=== PATIENT | female | born 1955 | race Caucasian/White ===

== ENCOUNTER 2017-01-25 15:20 | Emergency (ER) | payer BC, OTHER ==
[2017-01-25 15:44] VITALS: BP 185/75; PULSE 68; RESP 18; TEMP 98.7
[2017-01-25] MEDS ORDERED: PROPARACAINE 0.5% OPHTH DROPS 15 ML BTL RIGHT EYE STA (16:05)
--- NOTE | 2017-01-25 16:08 | ED ---
Eye Problem HPI <Alexis Bergman - Last Filed: 01/25/17 16:23> - General Source: patient, RN notes reviewed Mode of arrival: ambulatory Limitations: no limitations <Sadaf Weaver - Last Filed: 01/25/17 20:21> - General Chief complaint: Eye Problems Stated complaint: Eye Problem Time Seen by Provider: 01/25/17 15:55 - History of Present Illness Initial comments: Patient is a 61-year-old female presents to the emergency room for evaluation. Patient states about 45 minutes prior to arrival she began seeing a black spot in her right eye. Patient states since then it feels as though the black spot his dispersed. Patient explains it as black ink being dropped into a bowl of water. Patient states she cannot really see out of her right eye. Patient states she's never had symptoms like this before. Patient denies any pain in her eye. Patient denies any redness or irritation in her right eye. Patient denies headache or dizziness. Patient denies recent head trauma. (Sadaf Weaver) - Related Data Home Medications Medication Instructions Recorded Confirmed Aspirin 81 mg PO DAILY 06/12/15 01/25/17 Atenolol 25 mg PO BID 06/12/15 01/25/17 Ezetimibe/Simvastatin [Vytorin 1 tab PO DAILY 06/12/15 01/25/17 10-20 mg Tablet] Insulin Aspart [NovoLOG] 26 unit SQ AC-BRKFST 06/12/15 01/25/17 Insulin Aspart [NovoLOG] 30 unit SQ AC-LUNCH 06/12/15 01/25/17 Insulin Aspart [NovoLOG] 35 unit SQ AC-SUPPER 06/12/15 01/25/17 Insulin Glargine [Lantus] 56 unit SQ HS 06/12/15 01/25/17 Pioglitazone HCl [Actos] 15 mg PO DAILY 06/12/15 01/25/17 Ramipril [Altace] 20 mg PO DAILY 06/12/15 01/25/17 amLODIPine BESYLATE [Norvasc] 2.5 mg PO DAILY 06/12/15 01/25/17 metFORMIN HCL [metFORMIN HCL ER] 1,000 mg PO DAILY 06/12/15 01/25/17 Allergies Allergy/AdvReac Type Severity Reaction Status Date / Time naproxen sodium [From Aleve] Allergy Itching Verified 01/25/17 15:44 Penicillins Allergy Itching Verified 01/25/17 15:44 Review of Systems ROS Other: All systems not noted in ROS Statement are negative. <Alexis Bergman - Last Filed: 01/25/17 16:23> ROS Other: All systems not noted in ROS Statement are negative. <Sadaf Weaver - Last Filed: 01/25/17 20:21> ROS Statement: Those systems with pertinent positive or pertinent negative responses have been documented in the HPI. Past Medical History Past Medical History: Diabetes Mellitus, Eye Disorder, Hyperlipidemia, Hypertension Additional Past Medical History / Comment(s): Cataracts History of Any Multi-Drug Resistant Organisms: None Reported Past Surgical History: No Surgical Hx Reported Additional Past Surgical History / Comment(s): Has had a root canal in the past , (L) eye sugery. Past Anesthesia/Blood Transfusion Reactions: No Reported Reaction Past Psychological History: No Psychological Hx Reported Smoking Status: Never smoker - Past Family History Sister(s) Family Medical History: No Reported History Brother(s) Family Medical History: Cancer Additional Family Medical History / Comment(s): non-Hodkin's lymphoma <Sadaf Weaver - Last Filed: 01/25/17 20:21> General Exam <Alexis Bergman - Last Filed: 01/25/17 16:23> Limitations: no limitations General appearance: alert, in no apparent distress Head exam: Present: atraumatic, normocephalic, normal inspection Eye exam: Present: normal appearance, PERRL, EOMI Pupils: Present: normal accommodation Expanded Eyelids: Normal Inspection: Bilateral Pupils: Regular, Round: Bilateral, Reactive: Bilateral Sclera/Conjunctival: Normal Inspection: Bilateral ENT exam: Present: normal exam Neck exam: Present: normal inspection Respiratory exam: Absent: respiratory distress Extremities exam: Present: normal inspection Back exam: Present: normal inspection Neurological exam: Present: alert, oriented X3, CN II-XII intact, normal gait Psychiatric exam: Present: normal affect, normal mood Skin exam: Present: warm, dry, intact, normal color. Absent: rash <Sadaf Weaver - Last Filed: 01/25/17 20:21> - General Exam Comments Initial Comments: Sitting in exam room, no acute distress. (Sadaf Weaver) Course <Alexis Bergman - Last Filed: 01/25/17 16:23> <Sadaf Weaver - Last Filed: 01/25/17 20:21> Vital Signs 01/25/17 15:38 Temperature 98.7 F Pulse Rate 68 Respiratory 18 Rate Blood Pressure 185/75 O2 Sat by Pulse 95 Oximetry - Reevaluation(s) Reevaluation #1: 01/25/17 16:23 Case was discussed with Dr. Rao who will come evaluate the patient. Patient was reevaluated by myself. Patient describes a sudden lying around 45 minutes ago in her vision that turned into a large black spot. Patient is able see peripheral around the black spot however not through the black spot. Patient states this is comfortable sitting more than half of her vision. No pain. No eye pain. No headache. No tenderness over the temporal artery. No history of similar symptoms previously. Patient states the area of this does somewhat move. She recommends is intact. Pupils equal round reactive to light. Normal funduscopic exam on the left side. Funduscopic exam on the right side does have limited vision in the central portion. Funduscopic exam is somewhat limited. (Alexis Bergman) Medical Decision Making <Alexis Bergman - Last Filed: 01/25/17 16:23> <Sadaf Weaver - Last Filed: 01/25/17 20:21> - Medical Decision Making Patient is a 61-year-old female presents to the emergency room for evaluation of changes in vision of right eye. Patient was evaluated by Dr. Bergman and Dr. Rao, sas statistical programmer. After thorough exam, Dr. Rao advised that patient follow up with either him or her own sas statistical programmer on Friday. Return parameters discussed. (Sadaf Weaver) Disposition <Alexis Bergman - Last Filed: 01/25/17 16:23> Time of Disposition: 18:15 <Sadaf Weaver - Last Filed: 01/25/17 20:21> Clinical Impression: Blurry vision, right eye Disposition: HOME SELF-CARE Condition: Good Instructions: Blurred Vision (ED) Additional Instructions: Please follow-up with sas statistical programmer on Friday. If any new symptom arises or symptoms worsen, return to ER as soon as possible. Referrals: Filippo Cox MD [Primary Care Provider] - 1-2 days Bud Rao MD [STAFF PHYSICIAN] - 1-2 days
[2017-01-25] MEDS ORDERED: CYCLOPENTOLATE 1% OPHTH SOLN 2 ML BTL RIGHT EYE STA (16:40)
== END 2017-01-25 18:25 | disposition home or self-care (01) ==
LOC: EC 15:20
DX: H53.8 Other visual disturbances (principal); E11.9 Type 2 diabetes mellitus without complications; I10 Essential (primary) hypertension; E78.5 Hyperlipidemia, unspecified; Z88.0 Allergy status to penicillin; Z88.6 Allergy status to analgesic agent; Z79.4 Long term (current) use of insulin; Z79.84 Long term (current) use of oral hypoglycemic drugs; Z79.82 Long term (current) use of aspirin; Z79.899 Other long term (current) drug therapy
CPT/HCPCS: 99283

== ENCOUNTER → 2021-05-22 | Outpatient (CLI) | payer MEDICARE ==
[2021-05-22 14:29] LABS: African American GFR (CKD) >90 (>60 ml/min/1.73 sqM); Blood Urea Nitrogen 18 mg/dL (7-17); Non-African American GFR(CKD) >90 (>60 ml/min/1.73 sqM)
--- NOTE | 2021-05-22 15:53 | CT ---
EXAMINATION TYPE: CT abdomen pelvis w con DATE OF EXAM: 05/22/2021 COMPARISON: NONE HISTORY: 65-year-old female R1 0.30, right side abdomen pain. Recent culture came back positive. TECHNIQUE: Contiguous axial scanning of the abdomen and pelvis following administration of 100 ml Iso kalyani 300 IV contrast. Delayed images through the kidneys and coronal/sagittal reconstructions perform ed. CT DLP: 1833 mGycm Automated exposure control for dose reduction was used. FINDINGS: Heart upper limits of normal in size without pericardial effusion. Mitral annular calcifications and scattered coronary artery calcifications are present. Tiny hiatal hernia. No consolidation or pleural effusion in the visualized lower lungs. No focal liver lesion or biliary ductal dilatation. Portal venous system is patent. Gallbladder, adrenal glands, left kidney, spleen, and pancreas within normal limits. 7 mm hypodensity lateral upper mid pole right kidney too small for accurate CT characterization, like ly tiny cyst. Moderate atherosclerotic calcifications abdominal aorta and iliac arteries without aneurysm. No dilated small bowel, free fluid, or free air. Some scattered nonenlarged mesenteric lymph nodes. No mesenteric or retroperitoneal lymphadenopathy. Normal appendix. Oral contrast progressed into the proximal transverse colon. No significant stool bu rden. There is mild circumferential wall thickening of the distal sigmoid and rectum but without any surrounding fat stranding. Mild to moderate circumferential bladder wall thickening. Uterus anteverted. Small bilateral ovaries. No abnormal fluid collection in the pelvis or pelvic lymphadenopathy. Some patchy increased soft tissue density along the mid anterior abdominal wall in a horizontal orien tation located within the subcutaneous adipose. Suspect some type of scarring. Correlate with exact p hysical exam findings to exclude cellulitis. Bones: Mild degenerative change of the hips. Facet arthropathy mid to lower lumbar spine. Scattered m equ-ac-hgnlvrld degenerative disc disease. IMPRESSION: 1. SOME SUPERFICIAL SOFT TISSUE THICKENING JUST DEEP TO THE SKIN SURFACE ALONG THE ANTERIOR MID ABDOM EN IN A HORIZONTAL ORIENTATION. SUSPECT SOME TYPE OF SCARRING OR BRUISING. CLINICALLY CORRELATE TO EX CLUDE CELLULITIS. 2. MILD CIRCUMFERENTIAL WALL THICKENING DISTAL SIGMOID AND RECTUM. CORRELATE FOR A NONSPECIFIC MILD I NFECTIOUS OR INFLAMMATORY COLITIS. 3. CIRCUMFERENTIAL BLADDER WALL THICKENING MAY BE CHRONIC FOR THE PATIENT. CORRELATE TO EXCLUDE CYSTI TIS.
== END | disposition home or self-care (01) ==
LOC: RADCTMAIN 12:50
PROVIDERS: ATTEND Internal Medicine Geriatric Medicine
DX: M79.89 Other specified soft tissue disorders (principal)
CPT/HCPCS: 82565; 84520; 74177; 36415; Q9967

== ENCOUNTER → 2021-10-01 | Outpatient (CLI) | payer MEDICARE ==
--- NOTE | 2021-10-02 07:50 | ECHOF ---
Referral Reason:I35.0 MEASUREMENTS -------- HEIGHT: 160.0 cm WEIGHT: 108.9 kg BP: RVIDd: 2.6 cm (< 3.3) IVSd: 1.3 cm (0.6 - 1.1) LVIDd: 5.0 cm (3.9 - 5.3) LVPWd: 1.0 cm (0.6 - 1.1) IVSs: 1.6 cm LVIDs: 4.5 cm LVPWs: 1.0 cm LAESV Index (A-L): 41.26 ml/m Ao Diam: 3.0 cm (2.0 - 3.7) MV EXCURSION: 17.701 mm (> 18.000) MV EF SLOPE: 26 mm/s (70 - 150) EPSS: 1.2 cm MV E Corey: 0.60 m/s MV DecT: 379 ms MV A Corey: 1.05 m/s MV E/A Ratio: 0.57 AV maxP.23 mmHg AV maxP.23 mmHg AV meanP.53 mmHg AR PHT: 554 ms RAP: 5.00 mmHg RVSP: 14.95 mmHg FINDINGS -------- Sinus rhythm. This was a technically adequate study. The left ventricular size is normal. There is borderline concentric left ventricular hypertrophy. Overall left ventricular systolic function is low-normal with, an EF between 50 - 55 %. The right ventricle is normal in size. LA is severely dilated >40 ml/m2 The right atrial size is normal. The aortic valve was not well visualized. There is mild aortic regurgitation. There is mild aorti c stenosis present. Peak/mean gradient across the Aortic Valve is 31.23mmHg / 14.53mmHg. The mitral valve leaflets are mildly thickened. Moderate mitral annular calcification present. Mi ld mitral regurgitation is present. The peak and mean MV gradients are 14.35mmHg 3.96mmHg as measu red by doppler. Mild tricuspid regurgitation present. Right ventricular systolic pressure is normal at < 35 mmHg. The pulmonic valve was not well visualized. Echo free space represents a pericardial fat pad. CONCLUSIONS -------- 1. The left ventricular size is normal. 2. Overall left ventricular systolic function is low-normal with, an EF between 50 - 55 %. 3. The right ventricle is normal in size. 4. LA is severely dilated >40 ml/m2 5. The right atrial size is normal. 6. The aortic valve was not well visualized. 7. There is mild aortic regurgitation. 8. There is mild aortic stenosis present. 9. Peak/mean gradient across the Aortic Valve is 31.23mmHg / 14.53mmHg. 10. The mitral valve leaflets are mildly thickened. 11. Moderate mitral annular calcification present. 12. Mild mitral regurgitation is present. 13. The peak and mean MV gradients are 14.35mmHg 3.96mmHg as measured by doppler. 14. Mild tricuspid regurgitation present. 15. The pulmonic valve was not well visualized. 16. Echo free space represents a pericardial fat pad. [employer]NER [employer]: Leonora Quach RDCS
== END | disposition home or self-care (01) ==
LOC: RADECHMAIN 13:47
PROVIDERS: ATTEND Internal Medicine Geriatric Medicine
DX: I08.3 Combined rheumatic disorders of mitral, aortic and tricuspid valves (principal)
CPT/HCPCS: 93306

== ENCOUNTER 2021-10-24 08:22 | Day surgery (SDC) | payer MEDICARE ==
[2021-10-19 12:17] VITALS: BMI 42.5
[2021-10-24 08:53] LABS: Glucose,Whole Blood 143 mg/dL (75-99)
[2021-10-24] MEDS ORDERED: SODIUM CHLORIDE 0.9% 500 ML 500 ML IV ONE (08:58)
[2021-10-24 08:59] VITALS: TEMP 97.5
[2021-10-24] MEDS ORDERED: fentaNYL (PF) 50 MCG/ML 2 ML AMP ONE (09:11)
[2021-10-24] MEDS ORDERED: fentaNYL (PF) 50 MCG/ML 2 ML AMP IV ONE (09:25)
[2021-10-24] MEDS ORDERED: BENZOCAINE SPRAY 1 CAN MUCOUS MEM ONE (09:25)
[2021-10-24] MEDS ORDERED: MIDAZOLAM 2 MG/2 ML VIAL IV ONE (09:25)
[2021-10-24 09:47] VITALS: RESP 16
[2021-10-24 10:27] VITALS: BP 170/70; PULSE 66
--- NOTE | 2021-10-24 12:40 | ECHOT ---
TRANSESOPHAGEAL ECHOCARDIOGRAM INDICATION: Valvular heart disease noted on a 2D echocardiogram. PROCEDURE NOTE: After obtaining informed consent, transesophageal echocardiogram was performed in left lateral position using an Omniplane probe. Local and IV sedation were obtained using Versed and fentanyl. Patient tolerated the procedure well without any obvious immediate complications. Total sedation time was 10 minutes. Patient underwent 2D, color Doppler and spectral analysis. FINDINGS: 1. Mitral valve appears calcified with mild restriction in leaflet mobility with mild to moderate central mitral regurgitation. 2. Aortic valve appears calcified with restricted leaflet mobility. By planimetry, the valve area is 1 cm2, consistent with moderate aortic stenosis. 3. Left atrium appears enlarged. Right atrium and right ventricle seen within normal limits. Left ventricle has normal size and systolic function. 4. Aortic root appears normal. There are mild atherosclerotic changes. 5. Interatrial septum: There is no evidence of hgno-ow-ufala shunt by color-flow Doppler or dnchs-dq-xkgi shunt by agitated saline contrast study. CONCLUSIONS: 1. Moderate aortic stenosis. 2. Mild to moderate mitral regurgitation with mild mitral stenosis. Patient's valvular heart disease could be from prior rheumatic heart disease with rheumatic valve her older sister had rheumatic valvular heart disease and from it. MMODL / IJN: [id number] /
== END 2021-10-24 10:32 | disposition home or self-care (01) ==
LOC: CATHCVL 08:22
PROVIDERS: ATTEND Internal Medicine Cardiovascular Disease
DX: I05.0 Rheumatic mitral stenosis (principal); I08.0 Rheumatic disorders of both mitral and aortic valves; I10 Essential (primary) hypertension; E11.9 Type 2 diabetes mellitus without complications; E78.2 Mixed hyperlipidemia; R01.1 Cardiac murmur, unspecified; I51.7 Cardiomegaly; Z82.49 Family history of ischemic heart disease and other diseases of the circulatory system; Z79.84 Long term (current) use of oral hypoglycemic drugs; Z79.82 Long term (current) use of aspirin; Z79.4 Long term (current) use of insulin; Z79.899 Other long term (current) drug therapy; Z88.8 Allergy status to other drugs, medicaments and biological substances; Z88.6 Allergy status to analgesic agent; Z88.0 Allergy status to penicillin
CPT/HCPCS: 93312; 93320; 93325; J2250; J3010

== ENCOUNTER 2022-01-04 11:12 | Inpatient (IN) | payer MEDICARE ==
--- NOTE | 2022-01-04 11:35 | ED ---
General Adult HPI - General Chief complaint: Arrhythmia/Palpitations Stated complaint: SOB,Dizzy,Dr Duffy sent pt in Time Seen by Provider: 01/04/22 11:23 Source: patient Mode of arrival: ambulatory Limitations: no limitations - History of Present Illness Initial comments: Dictation was produced using [email or web address] dictation software. please excuse any grammatical, word or spelling errors. Chief Complaint: 66-year-old female sent in from food science technician's office for heart block History of Present Illness: She is a 66-year-old female she followed up at cardiology office for 2-3 weeks of weakness, exertional dyspnea. She was found to have abnormal EKG. Spoke with Dr. Mathis who saw her in the office reports that patient has findings of heart block on her EKG and that she should have workup and be admitted. Patient denies any pain complaints. She states that her symptoms of dyspnea are much more apparent with apparent with exertion. Patient has no chest pain. The ROS documented in this emergency department record has been reviewed and confirmed by me. Those systems with pertinent positive or negative responses have been documented in the HPI. All other systems are other negative and/or noncontributory. PHYSICAL EXAM: General Impression: Alert and oriented x3, not in acute distress HEENT: Normocephalic atraumatic, extra-ocular movements intact, pupils equal and reactive to light bilaterally, mucous membranes moist. Cardiovascular: Heart regular rate and rhythm Chest: Able to complete full sentences, no retractions, no tachypnea Abdomen: abdomen soft, non-tender, non-distended, no organomegaly Musculoskeletal: Pulses present and equal in all extremities, no peripheral edema Motor: no focal deficits noted Neurological: CN II-XII grossly intact, no focal motor or sensory deficits noted Skin: Intact with no visualized rashes Psych: Normal affect and mood ED course: 66 year old female presents to the emergency department food science technician office for abnormal EKG suspicious for heart block. Vital signs upon arrival shows heart rate of 41, blood pressure to 201/86, rest of vital signs within acceptable limits. EKG interpretation: Ventricular rate 41, complete heart block, QRS 136, QTC 47. No CA prolongation, no QTC prolongation, no ST or T-wave changes noted. Dr. Schwarz of cardiology was notified from Dr. Mathis who sent the patient in regarding patient's clinical status initially. Patient was taken to the Towel Cabinet Repairer by cardiology. Available labs shows that CBC is unremarkable. Patient is taken to the drop crew laborer prior to results of the metabolic panel. - Related Data Home Medications Medication Instructions Recorded Confirmed Aspirin 81 mg PO DAILY 06/12/15 10/24/21 Ezetimibe/Simvastatin [Vytorin 1 tab PO DAILY 06/12/15 10/24/21 10-20 mg Tablet] Pioglitazone HCl [Actos] 15 mg PO DAILY 06/12/15 10/24/21 Ramipril [Altace] 20 mg PO DAILY 06/12/15 10/24/21 amLODIPine BESYLATE [Norvasc] 2.5 mg PO DAILY 06/12/15 10/24/21 metFORMIN HCL [metFORMIN HCL ER] 1,000 mg PO DAILY 06/12/15 10/24/21 Cholecalciferol (Vitamin D3) 125 mcg PO DAILY 10/19/21 10/24/21 [Vitamin D3 (125 MCG = 5,000 IU)] Hydrochlorothiazide 12.5 mg PO DAILY 10/19/21 10/24/21 [hydroCHLOROthiazide] Insulin Glargine,Hum.rec.anlog 54 units SQ QAM 10/19/21 10/24/21 [Toujeo Solostar] Insulin NPH Human Isophane 15 units SQ HS 10/19/21 10/24/21 [humuLIN N] Latanoprost/Pf [Latanoprost 0.005% 1 drop BOTH EYES HS 10/19/21 10/24/21 Eye Drop] [place] Red 500 mg PO DAILY 10/19/21 10/24/21 Vitamin E (Dl,Tocopheryl Acet) 400 unit PO DAILY 10/19/21 10/24/21 [Vitamin E (400 Iu = 180 mg)] metFORMIN HCL 500 mg PO HS 10/19/21 10/24/21 Allergies Allergy/AdvReac Type Severity Reaction Status Date / Time ibuprofen [From Motrin] Allergy Itching Verified 01/04/22 11:19 naproxen sodium [From Aleve] Allergy Itching Verified 01/04/22 11:19 Penicillins Allergy Itching Verified 01/04/22 11:19 Review of Systems ROS Statement: Those systems with pertinent positive or pertinent negative responses have been documented in the HPI. ROS Other: All systems not noted in ROS Statement are negative. Past Medical History Past Medical History: Diabetes Mellitus, Eye Disorder, Hyperlipidemia, Hypert ension Additional Past Medical History / Comment(s): Elevated pressure in eyes. Hx left lower leg fracture(no surgery). History of Any Multi-Drug Resistant Organisms: None Reported Past Surgical History: No Surgical Hx Reported Additional Past Surgical History / Comment(s): Root canal, left eye sugery, bilateral cataracts removed. Past Anesthesia/Blood Transfusion Reactions: No Reported Reaction Past Psychological History: No Psychological Hx Reported Smoking Status: Never smoker Past Alcohol Use History: Rare Past Drug Use History: Marijuana - Past Family History Father Family Medical History: Deep Vein Thrombosis (DVT), Vascular Disorder Sister(s) Family Medical History: No Reported History Brother(s) Family Medical History: Cancer Additional Family Medical History / Comment(s): Non-Hodkin's Lymphoma. General Exam Limitations: no limitations Course Vital Signs 01/04/22 01/04/22 11:19 11:30 Temperature 98 F Pulse Rate 41 L Pulse Rate [ 41 L Software Programmer ] Respiratory 18 Rate Blood Pressure 201/86 O2 Sat by Pulse 97 Oximetry Medical Decision Making - Lab Data Result diagrams: 01/04/22 11:32 Lab Results 01/04/22 Range/Units 11:32 WBC 9.9 (3.8-10.6) k/uL RBC 4.02 (3.80-5.40) m/uL Hgb 12.6 (11.4-16.0) gm/dL Hct 38.1 (34.0-46.0) % MCV 95.0 (80.0-100.0) fL MCH 31.4 (25.0-35.0) pg MCHC 33.1 (31.0-37.0) g/dL RDW 13.4 (11.5-15.5) % Plt Count 265 (150-450) k/uL MPV 7.1 Neutrophils % 72 % Lymphocytes % 17 % Monocytes % 5 % Eosinophils % 4 % Basophils % 1 % Neutrophils # 7.1 (1.3-7.7) k/uL Lymphocytes # 1.7 (1.0-4.8) k/uL Monocytes # 0.5 (0-1.0) k/uL Eosinophils # 0.4 (0-0.7) k/uL Basophils # 0.1 (0-0.2) k/uL Critical Care Time Critical Care Time: Yes Total Critical Care Time: 33 Disposition Clinical Impression: Heart block Disposition: ADMITTED IP TO THIS HOSP Condition: Critical Referrals: Filippo Cox MD [Primary Care Provider] - 1-2 days Decision Time: 12:13
[2022-01-04 12:04] LABS: Basophils # (A) 0.1 k/uL (0-0.2); Basophils % (A) 1 %; Eosinophils # (A) 0.4 k/uL (0-0.7); Eosinophils % (A) 4 %; HCT 38.1 % (34.0-46.0); HGB 12.6 gm/dL (11.4-16.0); Lymphocytes # (A) 1.7 k/uL (1.0-4.8); Lymphocytes % (A) 17 %; MCH 31.4 pg (25.0-35.0); MCHC 33.1 g/dL (31.0-37.0); Mean Platelet Volume 7.1; Monocytes # (A) 0.5 k/uL (0-1.0); Monocytes % (A) 5 %; Neutrophils # (A) 7.1 k/uL (1.3-7.7); Neutrophils % (A) 72 %; Platelet Count 265 k/uL (150-450); RBC 4.02 m/uL (3.80-5.40); RDW 13.4 % (11.5-15.5); WBC 9.9 k/uL (3.8-10.6)
--- NOTE | 2022-01-04 12:04 | XR ---
EXAMINATION TYPE: XR chest 1V portable DATE OF EXAM: 01/04/2022 Comparison: None Clinical History: 66-year-old female shortness of breath, heart block Findings: Heart mildly enlarged. Interstitial prominence may be secondary to large body habitus. Hazy densities related to overlying soft tissue. No julissa consolidation or sizable pleural effusion. Impression: Mild cardiomegaly. Interstitial prominence may be technical due to large body habitus or could reflec t mild pulmonary vascular congestion.
[2022-01-04] MEDS ORDERED: NALOXONE 0.4 MG/ML 1 ML VIAL IV PRN (12:09)
[2022-01-04 12:16] LABS: Partial Thromboplastin Time 22.2 sec (22.0-30.0); Prothrombin Time 10.7 sec (9.0-12.0)
[2022-01-04] MEDS ORDERED: SODIUM CHLORIDE 0.9% 1,000 ML IV ONE (12:22)
[2022-01-04 12:26] LABS: Calcium 9.4 mg/dL (8.4-10.2); Magnesium 1.3 mg/dL (1.6-2.3)
[2022-01-04] MEDS ORDERED: CLINDAMYCIN 600 MG in SODIUM CHLORIDE 0.9% 250 ML IRRIGATION PRN (12:26)
[2022-01-04] MEDS ORDERED: SODIUM CHLORIDE 0.9% 1,000 ML IV SCH (12:30)
[2022-01-04] MEDS ORDERED: IOPAMIDOL-370 50ML BTL INJ ONE (12:55)
[2022-01-04] MEDS ORDERED: fentaNYL (PF) 50 MCG/ML 2 ML AMP ONE ×2 (12:58→13:18)
[2022-01-04] MEDS ORDERED: MIDAZOLAM 2 MG/2 ML VIAL IV ONE (13:01)
[2022-01-04] MEDS: CLINDAMYCIN 900 MG in DEXTROSE 5% IN WATER 50 ML IVPB STA ×4 (13:01→17:10)
[2022-01-04] MEDS ORDERED: LIDOCAINE 1% INJ 10MG/ML (30 ML VIAL-PF) SQ ONE ×2 (13:02→13:16)
[2022-01-04] MEDS ORDERED: fentaNYL (PF) 50 MCG/ML 2 ML AMP IV ONE (13:19)
[2022-01-04] MEDS: MAGNESIUM SULFATE-D5W PMX 1 GM in DEXTROSE/WATER 1 100ML.BAG IVPB SCH ×2 (14:01→14:53)
--- NOTE | 2022-01-04 15:41 | P.EPPROC ---
- EP Procedure Note Electrophysiology Procedure Note: Extended procedure, pacemaker implant for third degree heart block Morbid obesity Very the pocket High axillary vein on the left side, difficult access RV lead would not stay in stable position the RV apex Intubated repeatedly kicked out even after to screwed in, despite an initial excellent current of injury Multiple attempts were made in the RV apex in different positions and in the RV septum The month stylette would not even pass into the right ventricle and the lead wouldn't pull out into RA/IVC His bundle mapping was performed but was unsuccessful Left bundle mapping was performed with the [id number] sheath for the septum He was able to get excellent septal stability in the left bundle area The lead was slowly screwed in into the septum and we got a QRS pattern with a very short stim to peak QRS time in lead V6 of 74 ms However in the sheath was withdrawn lead also came out as it did with the RV lead repeatedly Multiple attempts were made but lead stability was an issue Finally the backup RV lead in the apex settled down to good position and even after screwing the lead and wound was stylette into stable Atrial lead is position right atrial appendage and is also very stable but multiple attempts at 3 made to position it The entire procedure took over 2-2-1/2 hours IV vancomycin, IV clindamycin andTyrx pouch was used Plan IV clindamycin Chest x-ray tomorrow Likely discharge tomorrow and follow-up with Dr. Wilkerson
--- NOTE | 2022-01-04 15:42 | P.EPPROC ---
- EP Procedure Note Electrophysiology Procedure Note: Diagnosis Bradycardia,, severe, secondary to third-degree heart block Procedure LV/ biventricular pacemaker implantation Details Patient was brought to the EP lab in a fasting state. Written informed consent was obtained prior to the procedure. Conscious sedation provided by anesthesia team IV antibiotics administered. Local anesthesia administered. A 4 cm incision made in the pectoral area. Subfascial pocket made. Venous access obtained Venous sheaths placed. Leads placed in the right heart Atrial lead position the right atrial appendage. Metronic 50-70 ms to lead model #5076 P waves 2.3 mV pacing impedance 456 ohms and pacing threshold 0.25 V at 0.4 ms RV lead position in the RV apex. Active fix lead model #5076, 58 cm in length Position in the RV apex finally Please see details in the separate dictation Pacing impedance 513 ohms, pacing threshold 0.5 V at 0.4 ms Dual-chamber pacemaker device connected to the leads and placed in the subfascial pocket Patient tolerance the procedure well without acute complications
--- NOTE | 2022-01-04 15:44 | P.PCN ---
Preoperative Diagnosis: Patient underwent EP procedure under conscious sedation/moderate sedation, monitoring of the level of consciousness and physiologic parameters including but not limited to vital signs and oxygenation. Patient tolerated the procedure well without any acute complications. Start time: 1301 Stop time: 1526
[2022-01-04] MEDS: SODIUM CHLORIDE 0.9% 1,000 ML IV SCH ×2 (17:09→17:10)
[2022-01-04] MEDS: CLINDAMYCIN 900 MG in DEXTROSE 5% IN WATER 50 ML IVPB SCH ×4 (18:01→23:19)
--- NOTE | 2022-01-04 19:32 | XR ---
EXAMINATION TYPE: XR chest 1V portable DATE OF EXAM: 01/04/2022 COMPARISON: NONE HISTORY: Check line placement TECHNIQUE: Single view FINDINGS: There is left axillary pacemaker. Lead tips are overlying the right ventricle. No heart jass lure seen. There are chest leads. Costophrenic angles are clear. IMPRESSION: No active cardiopulmonary disease. No adverse change.
[2022-01-04 20:51] LABS: Glucose,Whole Blood 147 mg/dL (75-99)
[2022-01-04] MEDS: INSULIN ASPART (NovoLOG) 100 UNIT/ML VIAL SQ SCH (20:55)
[2022-01-04] MEDS: ACETAMINOPHEN TAB 325 MG TAB PO PRN (20:58)
[2022-01-04] MEDS ORDERED: LATANOPROST 0.005% OPHTH DROPS 2.5 ML BTL BOTH EYES SCH (21:00)
[2022-01-04] MEDS ORDERED: INSULIN NPH 300 UNIT/3 ML VIAL SQ SCH (21:00)
[2022-01-05 00:38] VITALS: TEMP 98
[2022-01-05] MEDS: ACETAMINOPHEN TAB 325 MG TAB PO PRN ×2 (04:11→12:39)
[2022-01-05 06:16] LABS: Glucose,Whole Blood 133 mg/dL (75-99)
[2022-01-05] MEDS: INSULIN ASPART (NovoLOG) 100 UNIT/ML VIAL SQ SCH ×2 (06:17→14:35)
[2022-01-05] MEDS: CLINDAMYCIN 900 MG in DEXTROSE 5% IN WATER 50 ML IVPB SCH ×2 (06:18)
[2022-01-05] MEDS ORDERED: INSULIN DETEMIR (LEVEMIR) 100 UNIT/ML SYR SQ SCH (07:00)
[2022-01-05 08:55] VITALS: RESP 16
[2022-01-05] MEDS: SODIUM CHLORIDE 0.9% 1,000 ML IV SCH ×2 (08:55→14:35)
[2022-01-05] MEDS ORDERED: hydroCHLOROthiazide 25 MG TAB PO SCH (09:00)
[2022-01-05] MEDS ORDERED: ATORVASTATIN 10 MG TAB PO SCH (09:00)
[2022-01-05] MEDS ORDERED: lisinopriL 20 MG TAB PO SCH (09:00)
[2022-01-05] MEDS ORDERED: VITAMIN E (DL,TOCOPHERYL ACET) 400 UNIT (180 MG) CAP PO SCH (09:00)
[2022-01-05] MEDS ORDERED: amLODIPine 10 MG TAB PO SCH (09:00)
[2022-01-05] MEDS ORDERED: EZETIMIBE 10 MG TAB PO SCH (09:00)
[2022-01-05] MEDS ORDERED: PIOGLITAZONE 15 MG TAB PO SCH (09:00)
[2022-01-05] MEDS ORDERED: ASPIRIN 81 MG PO SCH (09:00)
[2022-01-05] MEDS ORDERED: CHOLECALCIFEROL 125 MCG (5000 IU) TABLET PO SCH (09:00)
--- NOTE | 2022-01-05 11:19 | P.HPIM ---
History of Present Illness 66-year-old pleasant female came in the with complaints of generalized weakness tiredness and the patient is found to have third-degree heart block in PCPs office and patient was sent in to the hospital patient underwent a negative p lacement. Patient is also hyponatremic does take hydrocodone for his at home potassium was within normal limits magnesium was 1.3 yesterday which was replaced with 2 g of magnesium will give her 2 more grams of magnesium repeat chest x-ray make sure there is no pneumothorax. Magnesium today if they're okay patient can be discharged today. She also has mildly elevated troponin without any evidence of acute microinfarction. REVIEW OF SYSTEMS: CONSTITUTIONAL: No fever, no malaise, no fatigue. HEENT: No recent visual problems or hearing problems. Denied any sore throat. CARDIOVASCULAR: No chest pain, orthopnea, PND, no palpitations, no syncope. PULMONARY: No shortness of breath, no cough, no hemoptysis. GASTROINTESTINAL: No diarrhea, no nausea, no vomiting, no abdominal pain. NEUROLOGICAL: No headaches, no weakness, no numbness. HEMATOLOGICAL: Denies any bleeding or petechiae. GENITOURINARY: Denies any burning micturition, frequency, or urgency. MUSCULOSKELETAL/RHEUMATOLOGICAL: Denies any joint pain, swelling, or any muscle pain. ENDOCRINE: Denies any polyuria or polydipsia. The rest of the 14-point review of systems is negative. PHYSICAL EXAMINATION: GENERAL: The patient is alert and oriented x3, not in any acute distress. Well developed, well nourished. HEENT: Pupils are round and equally reacting to light. EOMI. No scleral icterus. No conjunctival pallor. Normocephalic, atraumatic. No pharyngeal erythema. No thyromegaly. CARDIOVASCULAR: S1 and S2 present. No murmurs, rubs, or gallops. PULMONARY: Chest is clear to auscultation, no wheezing or crackles. ABDOMEN: Soft, nontender, nondistended, normoactive bowel sounds. No palpable organomegaly. MUSCULOSKELETAL: No joint swelling or deformity. Patient has a left arm sling because of her pacemaker that was placed EXTREMITIES: No cyanosis, clubbing, or pedal edema. NEUROLOGICAL: Gross neurological examination did not reveal any focal deficits. SKIN: No rashes surgical site areas appear to be clean.. Assessment and plan -Third-degree heart block patient received a pacemaker patient will be discharged today. -Hypoglycemia may be related to hydrochlorothiazide, inducible replaced and patient will need repeat magnesium on her visit to PCP if it continues to be low may need magnesium replacement at the time next -Hypertension patient was resumed on home medications that is amlodipine, li sinopril and hydrochlorothiazide which will be continued. -Mild nonspecific elevation of her troponin without any evidence of acute microinfarction -Hyperlipidemia -Type 2 diabetes mellitus, mildly uncontrolled: Further management as an outpatient Patient will be discharged today as mentioned above Past Medical History Past Medical History: Diabetes Mellitus, Eye Disorder, Hyperlipidemia, Hypertension Additional Past Medical History / Comment(s): Elevated pressure in eyes. Hx left lower leg fracture(no surgery), needs aortic and mitral valve replaced, rheumatic dx as a kid, 3yo could not walk and hospitalized. . History of Any Multi-Drug Resistant Organisms: None Reported Past Surgical History: No Surgical Hx Reported Additional Past Surgical History / Comment(s): Root canal, left eye sugery, bilateral cataracts removed. Past Anesthesia/Blood Transfusion Reactions: No Reported Reaction Past Psychological History: No Psychological Hx Reported Smoking Status: Never smoker Past Alcohol Use History: Rare Past Drug Use History: Marijuana Additional Drug Use History / Comment(s): Marijuana occasionally. - Past Family History Father Family Medical History: Deep Vein Thrombosis (DVT), Vascular Disorder Sister(s) Family Medical History: No Reported History Brother(s) Family Medical History: Cancer Additional Family Medical History / Comment(s): Non-Hodkin's Lymphoma. Medications and Allergies Home Medications Medication Instructions Recorded Confirmed Type Aspirin 81 mg PO DAILY 06/12/15 01/04/22 History Ezetimibe/Simvastatin [Vytorin 1 tab PO DAILY 06/12/15 01/04/22 History 10-20 mg Tablet] Pioglitazone HCl [Actos] 15 mg PO DAILY 06/12/15 01/04/22 History Ramipril [Altace] 20 mg PO DAILY 06/12/15 01/04/22 History amLODIPine BESYLATE [Norvasc] 10 mg PO DAILY 06/12/15 01/04/22 History Cholecalciferol (Vitamin D3) 125 mcg PO DAILY 10/19/21 01/04/22 History [Vitamin D3 (125 MCG = 5,000 IU)] Hydrochlorothiazide 25 mg PO DAILY 10/19/21 01/04/22 History [hydroCHLOROthiazide] Insulin Glargine,Hum.rec.anlog 54 units SQ DAILY 10/19/21 01/04/22 History [Toujeo Solostar] Insulin NPH Human Isophane 15 units SQ HS 10/19/21 01/04/22 History [humuLIN N] Latanoprost/Pf [Latanoprost 0.005% 1 drop BOTH EYES HS 10/19/21 01/04/22 History Eye Drop] [place] Red 500 mg PO DAILY 10/19/21 01/04/22 History Vitamin E (Dl,Tocopheryl Acet) 400 unit PO DAILY 10/19/21 01/04/22 History [Vitamin E (400 Iu = 180 mg)] Albuterol Inhaler [Ventolin Hfa 2 puff INHALATION RT-QID PRN 01/04/22 01/04/22 History Inhaler] Insulin Lispro [humaLOG Kwikpen] See Protocol SQ TID-W/MEALS PRN 01/04/22 01/04/22 History Mometasone Furoate [Elocon 0.1% 1 applic TOPICAL BID PRN 01/04/22 01/04/22 History Top Soln] metFORMIN HCL ER [Glucophage XR] 1,000 mg PO DAILY 01/04/22 01/04/22 History metFORMIN HCL ER [Glucophage XR] 500 mg PO DAILY 01/04/22 01/04/22 History Allergies Allergy/AdvReac Type Severity Reaction Status Date / Time ibuprofen [From Motrin] Allergy Itching Verified 01/04/22 20:02 naproxen sodium [From Aleve] Allergy Itching Verified 01/04/22 20:02 Penicillins Allergy Unknown Verified 01/04/22 20:02 Childhood Physical Exam Vitals: Vital Signs Temp Pulse Pulse Resp BP Pulse Ox 01/05/22 08:54 98 F 16 172/77 96 01/05/22 03:45 83 18 158/71 95 01/04/22 23:25 98 F 88 17 175/71 93 L 01/04/22 20:55 98.2 F 87 18 163/67 95 01/04/22 18:43 98.1 F 80 17 159/64 97 01/04/22 17:13 87 16 134/66 96 01/04/22 16:43 96 16 136/87 96 01/04/22 16:28 88 16 130/86 98 01/04/22 16:13 86 16 143/66 98 01/04/22 15:58 92 16 149/102 98 01/04/22 11:30 41 L Intake and Output 01/04/22 01/05/22 01/05/22 22:59 06:59 14:59 Intake Total 240 Balance 240 Intake: Oral 240 Other: # Voids 2 Weight 61.235 kg Results CBC & Chem 7: 01/04/22 11:32 01/04/22 11:32 Labs: Abnormal Lab Results - Last 24 Hours (Table) 01/04/22 01/04/22 01/04/22 Range/Units 11:32 11:32 20:49 BUN 23 H (7-17) mg/dL Glucose 231 H (74-99) mg/dL POC Glucose (mg/dL) 147 H (75-99) mg/dL Magnesium 1.3 L (1.6-2.3) mg/dL Troponin I 0.037 H* (0.000-0.034) ng/mL 01/05/22 Range/Units 06:14 BUN (7-17) mg/dL Glucose (74-99) mg/dL POC Glucose (mg/dL) 133 H (75-99) mg/dL Magnesium (1.6-2.3) mg/dL Troponin I (0.000-0.034) ng/mL Thrombosis Risk Factor Assmnt - Choose All That Apply Each Risk Factor Represents 2 Points: Age 61-74 years Thrombosis Risk Factor Assessment Total Risk Factor Score: 2 Thrombosis Risk Factor Assessment Level: Low Risk
--- NOTE | 2022-01-05 11:20 | P.DS ---
Providers Date of admission: 01/04/22 12:11 Attending physician: Filippo Cox Consults: 01/04/22 11:50 Consult Physician Routine Consulting Provider: Yaw Schwarz Consult Reason/Comments: 3rd Degree Heart Block Do you want consulting provider notified?: Already Contacted Primary care physician: Filippo Cox [facility] Course: Refer to my HPI for further details Patient Condition at Discharge: Critical Plan - Discharge Summary Discharge Rx Participant: Yes New Discharge Prescriptions: Continue Aspirin 81 mg PO DAILY Ramipril [Altace] 20 mg PO DAILY amLODIPine BESYLATE [Norvasc] 10 mg PO DAILY Pioglitazone HCl [Actos] 15 mg PO DAILY Ezetimibe/Simvastatin [Vytorin 10-20 mg Tablet] 1 tab PO DAILY Cholecalciferol (Vitamin D3) [Vitamin D3 (125 MCG = 5,000 IU)] 125 mcg PO DAILY Vitamin E (Dl,Tocopheryl Acet) [Vitamin E (400 Iu = 180 mg)] 400 unit PO DAILY Insulin Glargine,Hum.rec.anlog [Toujeo Solostar] 54 units SQ DAILY [place] Red 500 mg PO DAILY Hydrochlorothiazide [hydroCHLOROthiazide] 25 mg PO DAILY Insulin Lispro [humaLOG Kwikpen] See Protocol SQ TID-W/MEALS PRN PRN Reason: HIGH BLOOD SUGAR Latanoprost/Pf [Latanoprost 0.005% Eye Drop] 1 drop BOTH EYES HS Insulin NPH Human Isophane [humuLIN N] 15 units SQ HS metFORMIN HCL ER [Glucophage XR] 1,000 mg PO DAILY metFORMIN HCL ER [Glucophage XR] 500 mg PO DAILY Albuterol Inhaler [Ventolin Hfa Inhaler] 2 puff INHALATION RT-QID PRN PRN Reason: Shortness Of Breath Mometasone Furoate [Elocon 0.1% Top Soln] 1 applic TOPICAL BID PRN PRN Reason: itching and irritated skin Discharge Medication List Aspirin 81 mg PO DAILY 06/12/15 [History] Ezetimibe/Simvastatin [Vytorin 10-20 mg Tablet] 1 tab PO DAILY 06/12/15 [History] Pioglitazone HCl [Actos] 15 mg PO DAILY 06/12/15 [History] Ramipril [Altace] 20 mg PO DAILY 06/12/15 [History] amLODIPine BESYLATE [Norvasc] 10 mg PO DAILY 06/12/15 [History] Cholecalciferol (Vitamin D3) [Vitamin D3 (125 MCG = 5,000 IU)] 125 mcg PO DAILY 10/19/21 [History] Hydrochlorothiazide [hydroCHLOROthiazide] 25 mg PO DAILY 10/19/21 [History] Insulin Glargine,Hum.rec.anlog [Toujeo Solostar] 54 units SQ DAILY 10/19/21 [History] Insulin NPH Human Isophane [humuLIN N] 15 units SQ HS 10/19/21 [History] Latanoprost/Pf [Latanoprost 0.005% Eye Drop] 1 drop BOTH EYES HS 10/19/21 [History] [place] Red 500 mg PO DAILY 10/19/21 [History] Vitamin E (Dl,Tocopheryl Acet) [Vitamin E (400 Iu = 180 mg)] 400 unit PO DAILY 10/19/21 [History] Albuterol Inhaler [Ventolin Hfa Inhaler] 2 puff INHALATION RT-QID PRN 01/04/22 [History] Insulin Lispro [humaLOG Kwikpen] See Protocol SQ TID-W/MEALS PRN 01/04/22 [History] Mometasone Furoate [Elocon 0.1% Top Soln] 1 applic TOPICAL BID PRN 01/04/22 [History] metFORMIN HCL ER [Glucophage XR] 1,000 mg PO DAILY 01/04/22 [History] metFORMIN HCL ER [Glucophage XR] 500 mg PO DAILY 01/04/22 [History] Follow up Appointment(s)/Referral(s): Filippo Cox MD [Primary Care Provider] - 3 Days Sotero Mathis MD [STAFF PHYSICIAN] - 1 Week Patient Instructions/Handouts: Pacemaker (DC)
[2022-01-05 11:23] LABS: Basophils % (A) 0 %; Eosinophils # (A) 0.3 k/uL (0-0.7); Eosinophils % (A) 3 %; HCT 37.8 % (34.0-46.0); HGB 12.2 gm/dL (11.4-16.0); Lymphocytes # (A) 1.1 k/uL (1.0-4.8); Lymphocytes % (A) 15 %; MCH 30.2 pg (25.0-35.0); MCHC 32.2 g/dL (31.0-37.0); MCV 93.7 fL (80.0-100.0); Mean Platelet Volume 6.9; Monocytes # (A) 0.5 k/uL (0-1.0); Monocytes % (A) 6 %; Neutrophils # (A) 5.7 k/uL (1.3-7.7); Neutrophils % (A) 74 %; Platelet Count 230 k/uL (150-450); RBC 4.04 m/uL (3.80-5.40); RDW 13.4 % (11.5-15.5); WBC 7.7 k/uL (3.8-10.6)
[2022-01-05] MEDS: MAGNESIUM SULFATE-D5W PMX 1 GM in DEXTROSE/WATER 1 100ML.BAG IVPB SCH ×2 (11:25→12:40)
[2022-01-05 11:40] LABS: African American GFR (CKD) >90 (>60 ml/min/1.73 sqM); Anion Gap 8 mmol/L; Blood Urea Nitrogen 17 mg/dL (7-17); Calcium 8.8 mg/dL (8.4-10.2); Carbon Dioxide 25 mmol/L (22-30); Chloride 105 mmol/L (98-107); Glucose 95 mg/dL (74-99); Magnesium 1.6 mg/dL (1.6-2.3); Non-African American GFR(CKD) >90 (>60 ml/min/1.73 sqM); Potassium 4.5 mmol/L (3.5-5.1); Sodium 138 mmol/L (137-145)
[2022-01-05 12:01] LABS: Glucose,Whole Blood 108 mg/dL (75-99)
--- NOTE | 2022-01-05 12:19 | P.PN ---
Subjective Progress Note Date: 01/05/22 The patient is a 66-year-old female who follows in the office with Dr. Mathis. Initial H&P will be Dr Mathis's office note. She was sent urgently to the hospital yesterday with severe bradycardia, heart rate in the 30s with second and third-degree heart block. The patient underwent dual chamber pacemaker i mplantation by Dr. Schwarz. The patient was interviewed and examined sitting up comfortably in her recliner chair. She states she did well overnight. She denies any chest pain or chest pressure. No shortness of breath. She no longer has dizziness and lightheadedness. The patient had been reporting progressive fatigue and dizziness over the last several days. Device interrogation was completed this morning by [employer]. Patient settings are appropriate and she is cleared for discharge. GENERAL: Well-appearing, well-nourished and in no acute distress. NECK: Supple without JVD or thyromegaly. LUNGS: Breath sounds clear to auscultation bilaterally. Respiration equal and unlabored. No wheezes, rales or rhonchi. HEART: Regular rate and rhythm without murmurs, rubs or gallops. S1 and S2 heard. Surgical dressing over her left anterior chest wall. Dime sized shadowing noted. EXTREMITIES: Normal range of motion, no edema. No clubbing or cyanosis. Peripheral pulses intact and strong. VITALS: Blood pressure 172/77, pulse 83, respiratory rate 16, temp 98F, SpO2 96% on room air. These vital signs were prior to her a.m. antihypertensive regimen. TELEMETRY: Paced rhythm LABS: WBC 7.7, hemoglobin 12.2, hematocrit 37.8, platelet 2:30, sodium 138, potassium 4.5, BUN 15, creatinine 0.65, magnesium 1.6 IMPRESSION: Severe symptomatic bradycardia, status post dual-chamber pacemaker Second-degree/third-degree heart block Hypertension Obesity Diabetes mellitus PLAN: Continue current cardiac regimen Patient will be given discharge lifting restrictions Follow-up with device clinic and Dr. Mathis in one week Patient is cleared for discharge I am dictating on behalf of Dr Yaw Schwarz's history/physical and assessment/plan. Objective - Vital Signs Vital signs: Vital Signs Temp 98 F 01/05/22 08:54 Pulse 83 01/05/22 03:45 Resp 16 01/05/22 08:54 BP 172/77 01/05/22 08:54 Pulse Ox 96 01/05/22 08:54 FiO2 Intake & Output 01/04/22 01/05/22 01/05/22 18:59 06:59 18:59 Intake Total 646 Balance 646 Weight 61.235 kg Intake: IV 406 Oral 240 Other: # Voids 2 - Labs CBC & Chem 7: 01/05/22 10:45 01/05/22 10:45 Labs: Abnormal Lab Results - Last 24 Hours (Table) 01/04/22 01/04/22 01/04/22 Range/Units 11:32 11:32 20:49 BUN 23 H (7-17) mg/dL Glucose 231 H (74-99) mg/dL POC Glucose (mg/dL) 147 H (75-99) mg/dL Magnesium 1.3 L (1.6-2.3) mg/dL Troponin I 0.037 H* (0.000-0.034) ng/mL 01/05/22 Range/Units 06:14 BUN (7-17) mg/dL Glucose (74-99) mg/dL POC Glucose (mg/dL) 133 H (75-99) mg/dL Magnesium (1.6-2.3) mg/dL Troponin I (0.000-0.034) ng/mL
[2022-01-05 14:12] VITALS: BP 167/74; PULSE 82
== END 2022-01-05 14:35 | disposition home or self-care (01) | DRG 243 ==
LOC: CATHEP 11:12 → 3SCARD 12:11
PROVIDERS: ADMIT Internal Medicine Geriatric Medicine; ATTEND Internal Medicine Geriatric Medicine
PROC: 3E0102A Introduction of Anti-Infective Envelope into Subcutaneous Tissue, Open Approach (ICD-10-PCS; principal; 2022-01-04 12:55)
PROC: 0JH607Z Insertion of Cardiac Resynchronization Pacemaker Pulse Generator into Chest Subcutaneous Tissue and Fascia, Open Approach (ICD-10-PCS; principal; 2022-01-04 12:55)
PROC: 02HK0JZ Insertion of Pacemaker Lead into Right Ventricle, Open Approach (ICD-10-PCS; principal; 2022-01-04 12:55)
PROC: 02H60JZ Insertion of Pacemaker Lead into Right Atrium, Open Approach (ICD-10-PCS; principal; 2022-01-04 12:55)
DX: I44.2 Atrioventricular block, complete (principal); E87.1 Hypo-osmolality and hyponatremia; E11.649 Type 2 diabetes mellitus with hypoglycemia without coma; T50.2X5A Adverse effect of carbonic-anhydrase inhibitors, benzothiadiazides and other diuretics, initial encounter; R00.1 Bradycardia, unspecified; I10 Essential (primary) hypertension; E78.5 Hyperlipidemia, unspecified; E66.01 Morbid (severe) obesity due to excess calories; Y92.009 Unspecified place in unspecified non-institutional (private) residence as the place of occurrence of the external cause; Z68.23 Body mass index [BMI] 23.0-23.9, adult; Z98.42 Cataract extraction status, left eye; Z98.41 Cataract extraction status, right eye; Z79.4 Long term (current) use of insulin; Z79.82 Long term (current) use of aspirin; Z79.899 Other long term (current) drug therapy; Z80.7 Family history of other malignant neoplasms of lymphoid, hematopoietic and related tissues; Z88.6 Allergy status to analgesic agent; Z88.0 Allergy status to penicillin
CPT/HCPCS: 33208; 71045; 80048; 83735; 84484; 85025; 85610; 85730; 93005; 99291

== ENCOUNTER → 2022-04-03 | Outpatient (CLI) | payer MEDICARE ==
--- NOTE | 2022-04-05 07:57 | XR ---
EXAMINATION TYPE: XR chest 2V DATE OF EXAM: 04/03/2022 COMPARISON: 01/04/2022 HISTORY: Shortness of breath TECHNIQUE: Frontal and lateral views of the chest are obtained. FINDINGS: Scattered senescent parenchymal changes noted. Hyperinflation compatible with COPD. No evidence for infiltrate. No evidence for atelectasis. Heart size is stable. Mediastinal structures are stable and grossly unremarkable. No evidence for hilar prominence. Degenerative changes dorsal spine. IMPRESSION: 1. No evidence for acute pulmonary disease.
== END | disposition home or self-care (01) ==
LOC: RADXRMAIN 08:35
PROVIDERS: ATTEND Internal Medicine Geriatric Medicine
DX: J40 Bronchitis, not specified as acute or chronic (principal)
CPT/HCPCS: 71046

== ENCOUNTER → 2022-07-18 | Outpatient (CLI) | payer MEDICARE ==
--- NOTE | 2022-07-18 18:36 | BD ---
EXAMINATION TYPE: Axial Bone Density DATE OF EXAM: 07/18/2022 COMPARISON: NO PRIOR DEXA STUDIES AT [facility] CLINICAL HISTORY: 66 years year old Female. ICD-10 CODE: M81.0 AGE RELATED OSTEOPOROSIS Height: 63.2 Weight: 236 FRAX RISK QUESTIONS: Glucocorticoids (More than 3mos): YES (Ex: prednisone, prednisolone, methylprednisolone, dexamethasone, and hydrocortisone). History of Fracture in Adulthood: YES Secondary Osteoporosis: YES 3. Menopause before 45: YES 4. DIABETIC, I RISK FACTORS HISTORY OF: HX OF TIBIA FX AN ADULT, Postmenopausal woman: YES, AT AGE 38 NATURALLY Take estrogen and/or progesterone medications: YES, IN THE PAST FOR ONLY ABOUT 2 YRS Lost more than 2 inches in height since high school: YES Hyperparathyroidism: NO Adrenal Insufficiency: NO MEDICATIONS: Prednisone or other steroids: YES, ON AND OFF FOR LUNG TROUBLE, MANY YRS, PREDNISONE AND INHALERS, CH RONIC BRONCHITIS...HORRIBLE COUGH RIGHT NOW Additional Medications: BP MEDS, INSULIN DIABETIC, METFORMIN, INSULIN, STATINS FOR CHOLESTEROL, VIT D AND E, Additional History: HYPERTENSION, DIABETIC, CHOLESTEROL, CHRONIC COUGH AND LUNG TROUBLE, EARLY MENOPA USE, EXAM MEASUREMENTS: Bone mineral densitometry was performed using the [employer] System. Bone mineral density as measured about the Lumbar spine is: ----- L1-L4(G/cm2): 1.232 T Score Values are as follows: ----- L1: 0.4 ----- L2: 0.5 ----- L3: 0.9 ----- L4: -0.4 ----- L1-L4: 0.4 Bone mineral density FIRST DEXA STUDY AT [facility] Bone mineral density about the R hip (g/cm2): 1.081 Bone mineral density about the L hip (g/cm2): 1.038 T Score values are as follows: -----R Neck: -0.1 -----L Neck: -0.9 -----R Total: 0.6 -----L Total: 0.2 Bone mineral density NEW TO [facility] FRAX%s: The graph provided illustrates a 18.5% chance for a major osteoporotic fx and a 1.6% chance f or the hips probability for fx in 10 years time. IMPRESSION: Normal (Values between +1 and -1 indicate normal bone mass). Consider repeating this study in 5 year s or sooner if there is some new clinical indication. NOTE: T-SCORE=SD OF THE YOUNG ADULT MEAN.
--- NOTE | 2022-07-19 07:21 | MM ---
Reason for Exam: Screening (asymptomatic). Last mammogram was performed 21 year(s) and 8 month(s) ago. Patient History: Menarche at age 10. Patient has no children. Postmenopausal. Patient used Estrogen for 2 years. Patient used Progesterone for 2 years. Risk Values: Sharmin 5 year model risk: 1.9%. NCI Lifetime model risk: 6.2%. Prior Study Comparison: 04/22/1996 Screening Mammogram, Unknown. 11/17/2000 Bilateral Screening Mammogram, [facility]. Tissue Density: There are scattered fibroglandular densities. Findings: Analyzed By CAD. Pacemaker device in the left axilla adjacent to focal oil cyst is present. There is benign-appearing vascular calcification seen in the bilateral breasts. A few tiny benign-appearing round calcifications in the right breast are noted. There is no suspicious group of microcalcifications or suspicious mass in either breast. Overall Assessment: Benign, BI-RAD 2 Management: Screening Mammogram of both breasts in 1 year. A clinical breast exam by your physician is recommended on an annual basis and results should be correlated with mammographic findings. Electronically signed and approved by: Chong Mace M.D.
== END | disposition home or self-care (01) ==
LOC: RADMAMWWP 11:46
PROVIDERS: ATTEND Internal Medicine Geriatric Medicine
DX: Z12.31 Encounter for screening mammogram for malignant neoplasm of breast (principal); M81.0 Age-related osteoporosis without current pathological fracture; Z78.0 Asymptomatic menopausal state; E11.9 Type 2 diabetes mellitus without complications; I10 Essential (primary) hypertension; Z79.52 Long term (current) use of systemic steroids; M81.8 Other osteoporosis without current pathological fracture
CPT/HCPCS: 77063; 77067; 77080

== ENCOUNTER → 2025-01-12 | Outpatient (CLI) | payer MEDICARE ==
--- NOTE | 2025-01-12 15:19 | MM ---
Reason for Exam: Screening (asymptomatic). Last mammogram was performed 2 year(s) and 6 month(s) ago. Patient History: Menarche at age 10. Patient has no children. Postmenopausal. Patient used Estrogen for 2 years. Patient used Progesterone for 2 years. Risk Values: Sharmin 5 year model risk: 1.9%. NCI Lifetime model risk: 5.4%. Prior Study Comparison: 04/22/1996 Screening Mammogram, Unknown. 11/17/2000 Bilateral Screening Mammogram, [facility]. 07/18/2022 Bilateral MG 3D screening mammo w/cad, [facility]. Tissue Density: The breasts are almost entirely fatty. Findings: Analyzed By CAD. Degenerative device projecting over the left pectoralis. Some asymmetric density along the inferior margin of the electronic device remains unchanged suggesting scar tissue. Benign bilateral vascular calcifications. There is no suspicious group of microcalcifications or new suspicious mass in either breast. Overall Assessment: Benign, BI-RAD 2 Management: Screening Mammogram of both breasts in 1 year. Patient should continue monthly self-breast exams. A clinical breast exam by your physician is recommended on an annual basis. This exam should not preclude additional follow-up of suspicious palpable abnormalities. Note on Sharmin scores and lifetime risk: 1. A Sharmin score greater than 3% is considered moderate risk. If this is the case, consider specialist referral to assess eligibility for a risk reducing agent. 2. If overall lifetime risk for the development of breast cancer is 20% or higher, the patient may qualify for future screening with alternating mammogram and breast MRI. [facility], , 01/12/2025 3:16 PM. Electronically signed and approved by: Alem Rizzo M.D. Radiologist
--- NOTE | 2025-01-12 16:40 | BD ---
EXAMINATION TYPE: Axial Bone Density DATE OF EXAM: 01/12/2025 CLINICAL HISTORY: 69 years old Female. ICD-10 CODE: M81.0 MENOPAUSAL , Additional History: Height: 63.2 Weight: 210 FRAX RISK QUESTIONS: Glucocorticoids (More than 3mos): yes (Ex: prednisone, prednisolone, methylprednisolone, dexamethasone, and hydrocortisone). History of Fracture in Adulthood: yes Secondary Osteoporosis: yes 1. Type 1 Diabetes: yes 3. Menopause before 45: yes, at 38 RISK FACTORS HISTORY OF: tib fib break, height loss MEDICATIONS: prednisone, inhalers, chronic severe cough, bp meds, vit d, cholesterol meds, diabetic meds, insulin, EXAM MEASUREMENTS: Bone mineral densitometry was performed using the [employer] System. Bone mineral density as measured about the Lumbar spine is: ----- L1-L4(G/cm2): 1.260 T Score Values are as follows: ----- L1: -0.2 ----- L2: 0.8 ----- L3: 0.9 ----- L4: 1.0 ----- L1-L4: 0.7 Z Score Values are as follows: ----- L1: 0.5 ----- L2: 1.5 ----- L3: 1.6 ----- L4: 1.7 ----- L1-L4: 1.3 Bone mineral density has: Increased 2.3% since study of: 07.18.2022 Bone mineral density about the R hip (g/cm2): 1.005 Bone mineral density about the L hip (g/cm2): 0.974 T Score values are as follows: -----R Neck: -0.5 -----L Neck: -1.1 -----R Total: 0.0 -----L Total: -0.3 Z Score values are as follows: -----R Neck: 0.6 -----L Neck: 0.0 -----R Total: 0.8 -----L Total: 0.5 Bone mineral density has: Decreased -6.5% since study of: 07.18.2022 FRAX%s: The graph provided illustrates a 50.5% chance for a major osteoporotic fx and a 2.6% chance f or the hips probability for fx in 10 years time. IMPRESSION: Osteopenia (T Score between -2.5 and -1). There is slightly increased risk of fracture and the patient may be considered for treatment. Re-Screen 2-5 years. NOTE: T-SCORE=SD OF THE YOUNG ADULT MEAN. [facility], , 01/12/2025 4:37 PM
== END | disposition home or self-care (01) ==
LOC: RADBDWWP 12:28
PROVIDERS: ATTEND Internal Medicine Geriatric Medicine
DX: Z12.31 Encounter for screening mammogram for malignant neoplasm of breast (principal); M81.0 Age-related osteoporosis without current pathological fracture; M85.852 Other specified disorders of bone density and structure, left thigh; R92.313 Mammographic fatty tissue density, bilateral breasts; Z78.0 Asymptomatic menopausal state
CPT/HCPCS: 77063; 77067; 77080